=== PATIENT | male | born 1965 | race Caucasian/White ===

== ENCOUNTER 2019-02-02 06:51 | Inpatient (IN) ==
--- NOTE | 2019-02-02 07:29 | History & Physical Bridge Note ---
Date of Service February 02, 2019 History & Physical Bridge Note I have examined the patient, reviewed the History & Physical and in the interval since the performance of the History & Physical I have noted the following changes of clinical significance: no changes noted
--- NOTE | 2019-02-02 07:31 | Pre Anesthesia Assessment ---
Date of Service February 02, 2019 Pre Sedation Assessment Cardiovascular RRR, no murmur, no edema Respiratory normal respiratory effort, lungs clear to auscultation Pre-Sedation Airway Assessment Hx Sleep Apnea: No Thyromental Distance: > or= 3.5 Finger Breadths Oral Cavity: + WNL Mallampati Class: II ASA: ASA3 NPO Status Date of Last Intake of Fluids: 02/02/19 Time of Last Intake of Fluids: 00:00 Last Oral Intake of Fluids Comment: sip with meds Date of Last Intake of Solid Food: 02/01/19 Time of Last Intake of Solid Foods: 19:00 Procedure Planning Contraindications for Sedation: none Current Medications Reviewed: Yes Notes The planned sedation has been discussed with the patient. Informed Consent was obtained. I have identified the patient, determined the appropriateness of sedation and have assessed the patient immediately prior to the procedure. All medicine(s) and interventions are by my order.
[2019-02-02] MEDS ORDERED: ASPIRIN 81 MG CHEW ONE (07:32)
[2019-02-02] MEDS ORDERED: fentaNYL citrate 100 MCG/2 ML VIAL ONE (07:35)
[2019-02-02] MEDS ORDERED: NiCARDipine HCL INJ 2.5 MG/ML 10 ML AMP ONE (07:35)
[2019-02-02] MEDS ORDERED: HEPARIN (PORCINE) 1000 UNIT/ML 10 ML (CATH LAB USE ONLY) ONE (07:35)
[2019-02-02] MEDS ORDERED: MIDAZOLAM HCL 1 MG/ML 2ML VIAL ONE (07:35)
[2019-02-02] MEDS ORDERED: NITROGLYCERIN/D5W 100MCG/ML 20ML SYR ONE (07:36)
[2019-02-02] MEDS ORDERED: NITROGLYCERIN SL 0.4 MG/TAB TAB ONE (08:04)
[2019-02-02] MEDS ORDERED: DOBUTamine 500MG / 250ML D5W (CATH LAB USE ONLY) ONE (08:44)
[2019-02-02] MEDS ORDERED: DOPamine 400MG / 250ML D5W (CATH LAB USE ONLY) ONE (08:45)
--- NOTE | 2019-02-02 09:01 | Cardiac Catheterization ---
Cardiac Cath Procedure Full Procedure Date February 02, 2019 Pre-Procedure Diagnosis Pre-Procedure Diagnosis: Angina and Positive Stress Test AUC Score AUC Score: 9 Post-Procedure Diagnosis Post-Procedure Diagnosis: Severe CAD Procedure(s) Performed Procedure(s) Performed: Coronary Angiography, Left Heart Cath and Ultrasound Guided Vascular Access Manager Insurance Prieto Rojas MD Director College(s) Dwayne Sparks Estimated Blood Loss Estimated Blood Loss: < 25 ml Medication(s) Medication(s): Fentanyl, Heparin, Lidocaine 1%, Nicardipine, Nitroglycerin and Versed Summary of Findings Coronary angiography: 1. Left main coronary artery: The LMCA is without significant CAD. 2. Left anterior descending: The LAD is a large caliber vessel that wraps around the apex. Proximal LAD 40-50%. Mid LAD approximately 80%, near the ostium of small caliber D2. GRAHAM 2 flow distal to mid LAD stenosis. Medium caliber D3 without significant CAD. 3. Circumflex: Circumflex is a large caliber vessel. Proximal circumflex 30%. Mid circumflex 10-20%. Medium caliber OM without significant CAD. 4. Right coronary artery: The RCA is a large caliber, dominant vessel. Proximal RCA diffuse 20% followed by late proximal 30% stenosis. Mid RCA 40- 50%. Initially there was slow flow throughout the RCA, PDA, and PL, however he was hypotensive with systolic blood pressure in the 70s to lower 80s following sedation. PL and PDA without significant CAD. Left heart catheterization: 1. No aortic stenosis. Peak to peak gradient across the aortic valve was 0. 2. Low LVEDP; LVEDP 0mmHg 3. Left ventriculography was not performed. Procedural details: 1. Coronary angiography of the LMCA was performed via the right radial artery without known complication. Arterial spasm occurred however and 4 Macedonian JL catheter was unable to be advanced through the right radial artery due to spasm. He was given nitroglycerin 0.4 mg sublingual x2, as well as intra-arterial nicardipine. He was also given more sedation. Following this, he became hypotensive but asymptomatic. He was given 500 mL normal saline bolus and blood pressure improved to systolic blood pressure in the upper 80s to lower 90s by the completion of the case. 2. Due to spasm, the right femoral artery was cannulated under ultrasound guidance with a 6 Macedonian Joanne sheath. Coronary angiography of the RCA was completed via the right femoral artery. Ultrasound guidance for arterial access: 1. Right femoral artery cannulation was visualized under ultrasound guidance. Sedation start time: 7:50 a.m. Sedation end time: 8:30 a.m. Impression: 1. Severe CAD involving mid LAD. 2. Nonobstructive CAD involving circumflex and RCA. 3. Hypotension following sedation, nicardipine, and sublingual nitroglycerin. Hypotension responded to IV fluids. Plan: 1. Dr. Marcus of interventional Cardiology reviewed images and plans to intervene on mid LAD with possible IVUS of proximal LAD. Hemodynamics Rest Ao:: 100/57 Final Ao: 89/46 LV: 81/0/0 Recommendations Recommendations: PCI without planned CABG Specimens Specimens: None Radiation Exposure (mGy) 722 mGy. Fluoro time 4.2 min. Contrast (mls) 45 ml Procedural Complication(s) None Disposition Street Roller Engineer Holding/Recovery (Remains in lab support technician for PCI) ACC Data: Street Roller Engineer Cardiac Status Clinical evaluation leading to the procedure CAD Presenation: Positive Stress Test and Stable angina Anginal Classification: CCS III Heart Failure: No Cardiogenic Shock within 24 Hours: No Cardiac Arrest within 24 Hours: No Imaging Studies Past 6 Months: No Stress Studies Past 6 Months: Yes Standard Exercise Test: Yes - Positive and Risk/Extent of Ischemia (Int ermediate) Stress Echocardiogram: No Stress Testing w/SPECT MPI: No Cardiac CTA: No Coronary Anatomy Dominant: Right Left Main (% Stenosis): Normal LAD (% Stenosis): Proximal (40-50%) and Mid (80%) D1 (% Stenosis): Normal D2 (% Stenosis): Normal D3 (% Stenosis): Normal Circumflex (% Stenosis): Proximal (30%) and Mid (10-20%) OM1 (% Stenosis): Normal RCA (% Stenosis): Proximal (20-30%) and Mid (40-50%) R PDA (% Stenosis): Normal R PL1 (% Stenosis): Normal Left Ventricular Angiography EF (%): n/a Diagnostic Physicians Name: Prieto Rojas MD Status: Elective Closure Device Percutaneous Entry Location: Femoral (Initially right radial artery used for LMCA angiography. Right femoral artery used for RCA angiography (due to right radial artery spasm).) Closure Device: Radial Band (Band for right radial artery. Right femoral artery hemostasis as per Dr. Marcus.) Recommendations: PCI without planned CABG
[2019-02-02] MEDS ORDERED: CLOPIDOGREL BISULFATE 300 MG TAB ONE (09:46)
--- NOTE | 2019-02-02 10:19 | Cardiac Catheterization ---
Cardiac Cath Procedure Full Procedure Date February 02, 2019 Pre-Procedure Diagnosis Pre-Procedure Diagnosis: Angina and Positive Stress Test AUC Score AUC Score: 8 Post-Procedure Diagnosis Post-Procedure Diagnosis: Severe CAD Procedure(s) Performed Procedure(s) Performed: Coronary Angiography, Drug Eluting Stent and IVUS Piece Marker Small Arms Rashad Marcus MD Optical Dispenser(s) Dwayne Sparks Estimated Blood Loss Estimated Blood Loss: < 25 ml Medication(s) Medication(s): Clopidogrel, Fentanyl, Heparin, Lidocaine 1%, Nicardipine, Nitroglycerin and Versed Summary of Findings Indication: Stable angina, abnormal stress test Access: 6 Fr right common femoral artery. Initial diagnostic angiography done via right radial artery. Transition to femoral access due to limiting spasm Catheters: EBU 3.75 guide Findings: For full details of patient's coronary angiography please cath report dictated by Dr. Rojas. Briefly, patient found to have severe single vessel disease involving mid/proximal LAD. Decision to proceed with PCI. -- PCI -- Antithrombotic therapy: Heparin, clopidogrel Procedure: Left main cannulated with EBU 3.75 guide BMW wire placed into second diagonal Back Strip Machine Operator 50 wire passed across mid LAD stenosis into distal vessel IVUS used to assess extent of LAD disease, degree of calcificationmid LAD minimal luminal area 3.5 m, heavily calcified; proximal LAD with 70+ stenosis without significant calcification, MLA 3.7 mm (LAD occluded with IVUS catheter in place) Mid lesion predilated with 2.5 compliant balloon Dilated lesion stented with 3.0 x 34 mm Doron drug-eluting stent Stent post-dilated with 4.0 noncompliant balloon Repeat IVUS assessment showed well expanded stent, well apposed with no apparent coronary complications. IC vasodilators administered for spasm Small second diagonal with severe ostial stenosis but GRAHAM-3 flow Post procedure GRAHAM 3 flow, stent well expanded with minimal residual stenosis and no apparent cardiac complications. Arterial Closure: Angio-Seal to right GOVERNMENT RELATIONS ANALYST, TR band to radial artery Summary: 1. Severe single vessel coronary artery disease involving proximal to mid LAD 2. Successful PCI of proximal-mid LAD with single drug-eluting stent (3.0 x 34 mm [place]; postdilated with 4.0 NC). Recommendations: Admit to PCU Loaded with clopidogrel 600mg in senior laboratory technician Continue DAPT for at least 6 months Continued ASCVD risk factor modification. Consult cardiac rehab. Hemodynamics Rest Ao:: 89/46/61 Final Ao: 53/69 LV: -- Recommendations Recommendations: PCI without planned CABG Specimens Specimens: None Radiation Exposure (mGy) 3895 Contrast (mls) 210 Fluids (cc crystalloids) Fluids (cc crystalloids): 1000 Drains Drains: none Anesthesia moderate Procedural Complication(s) None Disposition PCU ACC Data: Screen Printing Inspector Cardiac Status Clinical evaluation leading to the procedure CAD Presenation: Positive Stress Test and Stable angina Anginal Classification: CCS III Heart Failure: No Cardiogenic Shock within 24 Hours: No Cardiac Arrest within 24 Hours: No Imaging Studies Past 6 Months: Yes Stress Studies Past 6 Months: Yes Standard Exercise Test: Yes - Positive and Risk/Extent of Ischemia Diagnostic Physicians Name: Rashad Marcus MD Status: Elective Closure Device Percutaneous Entry Location: Femoral Closure Device: Angio-Seal Recommendations: PCI without planned CABG PCI Indication: + Stress Test Lesion Segment Name: mid LAD Culprit Artery: Yes Stenosis Prior to Rx (%): 80 Chronic Total Occlusion: No IVUS: Yes FFR: No Pre-Procedure GRAHAM Flow: 2 Previously Treated Lesion: No Lesion Complexity: Non-High/Non-C Lesion Length (mm): 30 Thrombus Present: No Bifurcation Lesion: Yes Guidewire Across Lesion: Stenosis Post-Procedure (%): 0 Post-Procedure GRAHAM Flow: 3 Devices(s) Deployed: Yes Yes Intraprocedure Events Significant Disection: No Perforation: No
[2019-02-02] MEDS ORDERED: ONDANSETRON INJ 2 MG/ML 2 ML VIAL IV PRN (10:38)
[2019-02-02] MEDS ORDERED: ACETAMINOPHEN 325 MG TAB PO PRN (10:38)
[2019-02-02] MEDS ORDERED: NITROGLYCERIN SL 0.4 MG/TAB TAB SL PRN (10:43)
[2019-02-02] MEDS ORDERED: SODIUM CHLORIDE 0.9% 1000ML 1,000 ML IV SCH (10:45)
[2019-02-03 05:49] LABS: Basophils # (auto) 0.03 K/uL (0-0.2); Basophils % (auto) 0.5 %; Eosinophils # (auto) 0.12 K/uL (0-0.5); Hematocrit (blood only) 40.6 % (42-52); Hemoglobin 14.6 g/dL (14.0-18.0); Immature Granulocytes # (auto) 0.01 K/uL (0.00-0.02); Immature Granulocytes % (auto) 0.2 %; Lymphocytes # (auto) 0.89 K/uL (1.2-3.4); Lymphocytes % (auto) 15.1 %; Mean Corpuscular Volume 85.8 fL (80-100); Monocytes # (auto) 0.58 K/uL (0.11-0.59); Monocytes % (auto) 9.9 %; Neutrophils # (auto) 4.25 K/uL (1.4-6.5); Neutrophils % (auto) 72.3 %; Platelet Count 171 K/uL (130-400); RDW Coefficient of Variation 12.7 % (11.5-14.5); RDW Standard Deviation 39.4 fL (36.4-46.3); Red Blood Count 4.73 M/uL (4.7-6.1); White Blood Count 5.88 K/uL (4.8-10.8)
[2019-02-03 06:16] LABS: BUN Creatinine Ratio 17.5 (10-20); Calcium 8.6 mg/dl (8.5-10.1); Creatinine Clr Calc Pharmacy 112.2 ml/min; Est GFR (African American) 117.8; Est GFR (Non-African American) 101.7
[2019-02-03] MEDS ORDERED: ATORVASTATIN 40 MG TAB PO SCH (09:00)
[2019-02-03] MEDS ORDERED: CLOPIDOGREL BISULFATE 75 MG TAB PO SCH (09:00)
[2019-02-03] MEDS ORDERED: ASPIRIN 81 MG ECTAB PO SCH (09:00)
[2019-02-03] MEDS ORDERED: METOPROLOL SUCC 50MG EXT REL TAB PO SCH (09:00)
--- NOTE | 2019-02-03 09:30 | Discharge Summary ---
Date of Service February 03, 2019 Admission HPI Per Admitting Provider Mr. Langston is a 53-year-old man recently seen by Dr. Clemons in consultation for exertional chest pain. Pain gradually progressive over years prompting exercise treadmill test on which exercise induced chest pain reproduced along with inferolateral ST depressions. Diagnostic cardiac catheterization recommended. Specialty Data Cardiology Cardiac catheterization 02/02/2019: Coronary angiography: 1. Left main coronary artery: The LMCA is without significant CAD. 2. Left anterior descending: The LAD is a large caliber vessel that wraps around the apex. Proximal LAD 40-50%. Mid LAD approximately 80%, near the ostium of small caliber D2. GRAHAM 2 flow distal to mid LAD stenosis. Medium caliber D3 without significant CAD. 3. Circumflex: Circumflex is a large caliber vessel. Proximal circumflex 30%. Mid circumflex 10-20%. Medium caliber OM without significant CAD. 4. Right coronary artery: The RCA is a large caliber, dominant vessel. Proximal RCA diffuse 20% followed by late proximal 30% stenosis. Mid RCA 40- 50%. Initially there was slow flow throughout the RCA, PDA, and PL, however he was hypotensive with systolic blood pressure in the 70s to lower 80s following sedation. PL and PDA without significant CAD. PCI: Successful PCI of proximal-mid LAD with single drug-eluting stent (3.0 x 34 mm [place]; postdilated with 4.0 NC). Discharge Data Procedures Performed Operation Date: 02/02/19 08:00 Actual Procedures p Cath, Left with Cors and Vent - Prieto Rojas MD s Cineradiography w/Routine Exam - Prieto Rojas MD s Ultrasound Vascular Access - Prieto Rojas MD s Drug Eluting Stent SGl Vessel - Isauro Marcus MD s IVUS Coronary Single Vessel - Isauro Marcus MD Hospital Course (1) Coronary artery disease: Patient underwent cardiac catheterization via right radial artery with Dr. Rojas. He was found to have an 80% mid LAD stenosis with at least moderate proximal LAD disease. Also noted to have mild to moderate RCA disease. Angiography complicated by significant radial artery spasm requiring conversion to femoral approach. Due to patient's progressive, limiting symptoms decision made to proceed with PCI. IVUS assessment of proximal LAD revealed diffuse, severe plaque extending almost back to ostium. Proximal to mid LAD stented with long 3.0 x 34 mm med SHERON. Stent optimization with IVUS guidance and postdilated with 4.0 NC balloon. Admitted to telemetry service for observation post procedure. Patient remained largely chest pain-free. No events on telemetry. Postprocedure labs stable. No right radial artery access site complications. On hospital day 2 was feeling well and discharged home on dual medical therapy with aspirin, clopidogrel. He will follow-up with Dr. Clemons in 2 weeks. Discharge Instructions Home Medications aspirin [Aspir-Low] 81 mg PO DAILY 02/02/19 [History Confirmed 02/02/19] atorvastatin 80 mg PO DAILY 02/02/19 [History Confirmed 02/02/19] metoprolol succinate 50 mg PO DAILY 02/02/19 [History Confirmed 02/02/19] nitroglycerin [Nitrostat] 0.4 mg SUBLINGUAL DAILY PRN 02/02/19 [History Confirmed 02/02/19] clopidogrel 75 mg PO QAM 30 Days #30 tab 02/03/19 [Rx]
--- OUTSIDE RECORDS SUMMARY | 2019-02-07 20:00 | External Medical Summary | Continuity of Care Document ---
:1965 Author Name Chinyere Miller, Provider Address Unavailable Unavailable , Care Team Providers Name Role Phone Deonte Miller, Osei Perkins Unavailable [email or web address] Unavailable Unavailable Unavailable Unavailable Unavailable Problems Fatigue (780.79) (R53.83) Chest pain (786.50) (R07.9) Positive cardiac stress test (794.39) (R94.39) Angina, class II (413.9) (I20.9) Dyslipidemia (272.4) (E78.5) Allergies and Adverse Reactions Penicillins (Allergy) Reaction: Rash Medications RA Aspirin EC 81 MG Oral Tablet Delayed Release; TAKE 1 TABLET DAILY. Paul Clemons Start: 27-Jan-2019 Quantity: 30 Refills: 5 Atorvastatin Calcium 80 MG Oral Tablet; TAKE 1 TABLET DAILY. Paul Clemons Start: 27-Jan-2019 Quantity: 30 Refills: 11 Metoprolol Succinate ER 50 MG Oral Table t Extended Release 24 Hour; TAKE 1 TABLET DAILY. Paul Clemons Start: 27-Jan-2019 Quantity: 30 Refills: 11 Nitroglycerin 0.4 MG Sublingual Tablet S ublingual; PLACE 1 TABLET UNDER THE TONGUE EVERY 5 MINUTES FOR UP TO 3 DOSES NEEDED FOR CHEST PAIN.CALL 911 IF PAIN PERSISTS. Paul Clemons Start: 27-Jan-2019 Quantity: 3 25 Tablet Bottle Refills: 3 Procedures Procedures not documented Immunizations Immunizations not documented Plan of Treatment Planned Encounters Appointment; Osei Clemons M.D. Start: 16-Feb-2019 15:45 Requ est Planned Observations Planned Goals not documented Results CBC No Diff Laboratory: [facility] [address] [facility] [address] tel: 27-Jan-2019 15:15 WBC 5.16 K/uL Range: 4.8-10.8 K/u L RBC 5.19 {M/uL} Range: 4.7-6.1 M/uL HEMOGLOBIN 15.9 g/dL Range: 14.0-18.0 g /dL HEMATOCRIT 43.9 % Range: 42-52 % MCV 84.6 fL Range: 80-100 fL MCH 30.6 pg Range: 25-34 pg MEAN CORPUSCULAR HGB CONC 36.2 g/dL Rang e: 32-36 g/dL (above high threshold) RED CELL DISTRIBUTION WIDTH SD 38.1 Rang e: 36.4-46.3 fL fL RED CELL DISTRIBUTION WIDTH CV 12.5 Rang e: 11.5-14.5 % % PLATELET COUNT 202 K/uL Range: 130-400 K/uL MEAN PLATELET VOLUME 11.7 fL (above Rang e: 7.4-10.4 fL high threshold) Basic Metabolic Panel Laboratory: [facility] [address] [facility] [address] tel: 27-Jan-2019 15:15 SODIUM 141 mmol/L Range: 136-145 mmol /L POTASSIUM 3.8 mmol/L Range: 3.5-5.1 mmo l/L CHLORIDE 107 mmol/L Range: 98-107 mmol/ L CARBON DIOXIDE 28 mmol/L Range: 21-32 m mol/L ANION GAP 6.0 Range: 3-11 BLOOD UREA NITROGEN 20 mg/dl (above Rang e: 7-18 mg/dl high threshold) CREATININE 0.81 mg/dl Range: 0.6-1.4 mg /dl Estimated GFR () Comment s: Units: ml/min per 118.4 1.73 meters squaredT he estimated GFR (CKD-E PI equation) has not be en validatedfor inpatie nt settings and may not be an accurate reflectiono f renal function in critical ly ill patients or those withrapidly changing renal function (e.g. SINAN). Estimated GFR (Non-) Com ments: Units: ml/min per 102.2 1.73 meters squaredT he estimated GFR (CKD-E PI equation) has not be en validatedfor inpatie nt settings and may not be an accurate reflectiono f renal function in critical ly ill patients or those withrapidly changing renal function (e.g. SINAN). BUN/CREATININE RATIO 24.3 (above Range: 10-20 high threshold) GLUCOSE 81 mg/dl Range: 70-99 mg/dl CALCIUM 9.4 mg/dl Range: 8.5-10.1 mg/ dl PT/INR Laboratory: [facility] [address] [facility] [address] tel: 27-Jan-2019 15:15 Prothrombin Time 10.6 {Seconds} Range: 9.0-12.0 Seconds INR 1.0 Range: 0.9-1.1 PTT Laboratory: [facility] [address] [facility] [address] tel: 27-Jan-2019 15:15 PTT PATIENT 26.5 {Seconds} Range: 21.0- 31.0 Seconds Comments: Therapeuti c APTT range is 46.0 - 66.4 seconds PARTIAL THROMBOPLASTIN RATIO 1.0 Vital Signs 27-Jan-2019 12:54 Systolic 138 mm[Hg] Comments: Location: LUE; Position: Sitting Diastolic 82 mm[Hg] Comments: Location: LUE; Position: Sitting Height 71 in BSA Calculated 2 m2 BMI Calculated 24.7 kg/m2 Weight 177.125 lb Heart Rate 68 /min Comments: Location: Radial; Encounters Appointment; Osie Clemons M.D. 27-Jan-2019 13:00 Encounter Diagnosis: Problem not documented Appointment; Osei Clemons M.D. 16-Feb-2019 15:45 Encounter Diagnosis: Problem not documented
== END 2019-02-03 10:45 | disposition home or self-care (01) | DRG 247 ==
LOC: CC 06:51 → 2S 10:01